=== PATIENT | female | born 1945 | race Caucasian/White ===

== ENCOUNTER 2023-07-12 08:53 | Day surgery (SDC) | payer MEDICARE, BC ==
[~2023-07-12] VITALS: Ht 167.6 cm; Wt 68.1 kg
[~2023-07-12 08:53] MED LIST: KETOROLAC TROMETHAMINE 0.5% 5 ML OPHTHALMIC SOLUTION ONE; MOXIFLOXACIN HCL 0.5% 3 ML OPHTHALMIC SOLUTION ONE; PHENYLEPHRINE HCL 2.5% 2 ML OPHTHALMIC SOLUTION ONE; RINGERS SOLUTION,LACTATED 500 ML IV ONE; TROPICAMIDE 1% 2 ML OPHTHALMIC SOLUTION ONE
[2023-07-12] MEDS ORDERED: CHONDR SULF A SOD/HYALURONATE 1.05 ML KIT IO ONE (08:54)
[2023-07-12] MEDS ORDERED: FentaNYL CITRATE PF 100 MCG/2 ML VIAL IVP ONE (08:54)
[2023-07-12] MEDS ORDERED: MIDAZOLAM HCL 2 MG/2 ML VIAL IVP ONE (08:54)
[2023-07-12] MEDS: KETOROLAC TROMETHAMINE 0.5% 5 ML OPHTHALMIC SOLUTION OD SCH ×3 (10:17→10:36)
[2023-07-12] MEDS: TROPICAMIDE 1% 2 ML OPHTHALMIC SOLUTION OD SCH ×3 (10:17→10:36)
[2023-07-12] MEDS: MOXIFLOXACIN HCL 0.5% 3 ML OPHTHALMIC SOLUTION OD SCH ×3 (10:17→10:36)
[2023-07-12] MEDS: PHENYLEPHRINE HCL 2.5% 2 ML OPHTHALMIC SOLUTION OD SCH ×3 (10:17→10:37)
[2023-07-12] MEDS ORDERED: POVIDONE-IODINE 5% 30 ML OPHTHALMIC SOLUTION ONE (10:30)
[2023-07-12] MEDS ORDERED: TETRACAINE HCL/PF 0.5% 4 ML OPHTHALMIC SOLUTION ONE (10:30)
[2023-07-12] MEDS ORDERED: LIDOCAINE/PF 1% 2 ML VIAL ONE (10:30)
[2023-07-12] MEDS ORDERED: BALANCED SALT 15 ML OPHTHALMIC IRRIG.SOLN ONE (10:30)
[2023-07-12] MEDS ORDERED: EPINEPHrine 1:1,000 [1 MG/ML] VIAL ONE (10:30)
[2023-07-12] MEDS ORDERED: PRAV40TA4 PO (10:34)
== END 2023-07-12 13:40 | disposition home or self-care (01) ==
LOC: SURGERY 08:53
PROVIDERS: ATTEND Ophthalmology
DX: H25.11 Age-related nuclear cataract, right eye (principal); Z79.899 Other long term (current) drug therapy; Z90.710 Acquired absence of both cervix and uterus; Z88.0 Allergy status to penicillin; Z98.890 Other specified postprocedural states
CPT/HCPCS: 66984; 93005; J0171; J3010; J3490; J2250; Q9967; J7120; V2632